=== PATIENT | female | born 1945 | race Caucasian/White ===

== ENCOUNTER → 2024-06-01 11:28 | Outpatient (REF) | payer OTHER, SELFPAY | LOC: WDC 11:28 | PROVIDERS: ATTENDING PHYSICIAN Nurse Practitioner Family; OTHER PHYSICIAN Psychiatry & Neurology Vascular Neurology | DX: R47.89 Other speech disturbances (principal); R41.3 Other amnesia; Z12.31 Encounter for screening mammogram for malignant neoplasm of breast | CPT/HCPCS: 70553; A9575 ==

== ENCOUNTER → 2024-08-13 08:28 | Outpatient (REF) | payer OTHER, SELFPAY | LOC: HWRAD 08:28 | PROVIDERS: ATTENDING PHYSICIAN Nurse Practitioner Family | DX: M85.80 Other specified disorders of bone density and structure, unspecified site (principal) | CPT/HCPCS: 77080 ==